=== PATIENT | male | born 1950 | race Native Hawaiian/Other Pacific Islander ===

== ENCOUNTER 2022-06-08 12:39 | Outpatient (CLI) | payer BC, OTHER | END 2022-06-08 19:26 | disposition home or self-care (01) | LOC: CT 12:39 | PROVIDERS: ATTEND Internal Medicine | DX: J35.8 Other chronic diseases of tonsils and adenoids (principal) | CPT/HCPCS: 36415; 82565; 84520; Q9963 ==